=== PATIENT | female | born 1980 | race Caucasian/White ===

== ENCOUNTER 2017-04-01 17:49 | Emergency (ER) | payer MEDICAID ==
[~2017-04-01] VITALS: Ht 154.9 cm; Wt 89.4 kg
[~2017-04-01 17:49] MED LIST: PREN-385 PO
[2017-04-01 18:57] VITALS: BP 129/94
--- NOTE | 2017-04-01 22:29 | NUR ---
PT AMB W/O AST TO ER BED 7
--- NOTE | 2017-04-01 22:30 | NUR ---
37Y F BIB FAMILY C/O ABDOMINAL PAIN 08/31 X2 WEEKS. PT IS AAOX4, NO S/S OF SOB/DISTRESS, LUNG SOUNDS CLEAR BL, DENIES CHEST PAIN, HR EVEN AND REGULAR; DENIES N/V/D; SKIN IS PINK/WARM/DRY; AMBULATORY WITH STEADY GAIT. PATIENT POSITIONED FOR COMFORT; HOB ELEVATED; BEDRAILS UP X2; BED DOWN. ER MD MADE AWARE OF PT STATUS.
--- NOTE | 2017-04-01 22:36 | NUR ---
Dr. Goncalves evaluating patient at bedside.
[2017-04-01] MEDS ORDERED: NACL 0.9% 1,000 ML IV SCH (22:39)
[2017-04-01] MEDS ORDERED: KETOROLAC 30 MG/ML VIAL IVP ONE (22:40)
--- NOTE | 2017-04-01 22:43 | NUR ---
Ultrasound at bedside.
[2017-04-01 23:20] LABS: BASOPHILS # (AUTO) 0.1 K/uL (0.00-0.22); BASOPHILS % (AUTO) 1.6 % (0.0-2.0); EOSINOPHILS # (AUTO) 0.1 K/uL (0-0.4); EOSINOPHILS % (AUTO) 1.5 % (0.0-4.0); HEMOGLOBIN 13.8 g/dL (12.0-16.0); LYMPHOCYTES # (AUTO) 2.5 K/uL (2.5-16.5); MEAN CORPUSCULAR HEMOGLOBIN 28 pg (27-31); MEAN CORPUSCULAR HGB CONC 33 g/dL (33-37); MEAN CORPUSCULAR VOLUME 86 fL (80-94); MONOCYTES # (AUTO) 0.4 K/uL (0.8-1.0); MONOCYTES % (AUTO) 4.3 % (1.7-9.3); NEUTROPHILS # (AUTO) 5.6 K/uL (1.8-7.7); NEUTROPHILS % (AUTO) 63.6 % (42.2-75.2); PLATELET COUNT (AUTO) 298 K/uL (140-450); RED BLOOD CELL COUNT(AUTO) 4.89 MIL/uL (4.20-5.40); RED CELL DISTRIBUTION WIDTH 11.8 % (11.6-13.7); WHITE BLOOD COUNT (AUTO) 8.7 K/uL (4.8-10.8)
[2017-04-01 23:37] LABS: ALBUMIN 3.4 g/dL (3.4-5.0); ANION GAP 10.1 (8-16); CALCIUM 8.9 mg/dL (8.5-10.1); CARBON DIOXIDE 28.8 mmol/L (21-32); CREATININE 0.6 mg/dL (0.6-1.3); POTASSIUM 3.9 mmol/L (3.5-5.1); TOTAL BILIRUBIN 0.3 mg/dL (0.0-1.0); TOTAL PROTEIN, SERUM 8.8 g/dL (6.4-8.2)
--- NOTE | 2017-04-01 23:58 | NUR ---
PT SENT TO CT WITH TECH AAOX4
--- NOTE | 2017-04-02 01:57 | NUR ---
Patient appears to be resting comfortably in bed. Vital Signs within normal limits. Respirations even and unlabored.
[2017-04-02 02:25] VITALS: BP 117/68
--- NOTE | 2017-04-02 02:27 | NUR ---
Patient discharged with v/s stable. Written and verbal after care instructions given and explained. Patient alert, oriented and verbalized understanding of instructions. Ambulatory with steady gait. All questions addressed prior to discharge. ID band removed. Patient advised to follow up with PMD. Rx of ZOFRAN ODT 4MG, MOTRIN 600MG given. Patient educated on indication of medication including possible reaction and side effects. Opportunity to ask questions provided and answered.
== END 2017-04-02 02:27 | disposition home or self-care (01) ==
LOC: MED 17:49
DX: D27.1 Benign neoplasm of left ovary (principal); R73.9 Hyperglycemia, unspecified
CPT/HCPCS: 36415; 74177; 76830; 76856; 80053; 81002; 81025; 83690; 85025; 96361; 96374; 99285; J1885; J7030; Q0092; Q9967

== ENCOUNTER 2020-01-31 06:05 | Day surgery (SDC) | payer MEDICAID, OTHER ==
[2020-01-26 10:58] LABS: BASOPHILS # (AUTO) 0.1 K/uL (0.00-0.22); BASOPHILS % (AUTO) 1.5 % (0.0-2.0); EOSINOPHILS # (AUTO) 0.1 K/uL (0-0.4); EOSINOPHILS % (AUTO) 1.4 % (0.0-4.0); HEMOGLOBIN 12.9 g/dL (12.0-16.0); LYMPHOCYTES # (AUTO) 2.3 K/uL (2.5-16.5); LYMPHOCYTES % (AUTO) 37.1 % (20.5-51.1); MEAN CORPUSCULAR HEMOGLOBIN 28 pg (27-31); MEAN CORPUSCULAR HGB CONC 33 g/dL (33-37); MEAN CORPUSCULAR VOLUME 83.5 fL (80-94); MONOCYTES # (AUTO) 0.3 K/uL (0.8-1.0); MONOCYTES % (AUTO) 4.4 % (1.7-9.3); NEUTROPHILS # (AUTO) 3.5 K/uL (1.8-7.7); NEUTROPHILS % (AUTO) 55.6 % (42.2-75.2); PLATELET COUNT (AUTO) 325 K/uL (140-450); RED BLOOD CELL COUNT(AUTO) 4.67 MIL/uL (4.20-5.40); RED CELL DISTRIBUTION WIDTH 13.4 % (11.6-13.7); WHITE BLOOD COUNT (AUTO) 6.3 K/uL (4.8-10.8)
[2020-01-26 11:11] LABS: ALBUMIN 3.4 g/dL (3.4-5.0); ANION GAP 9.9 (8-16); CARBON DIOXIDE 28.1 mmol/L (21-32); CREATININE 0.7 mg/dL (0.6-1.3); TOTAL BILIRUBIN 0.3 mg/dL (0.0-1.0)
== END 2020-01-31 07:40 | disposition home or self-care (01) ==
LOC: MDS 06:05 → MMU 06:14 → MDS 07:40
PROVIDERS: ATTEND Obstetrics & Gynecology
DX: D27.1 Benign neoplasm of left ovary (principal); Z53.8 Procedure and treatment not carried out for other reasons
CPT/HCPCS: 36415; 80053; 84703; 85025; J7120

== ENCOUNTER 2022-04-04 05:37 | Emergency (ER) | payer MEDICAID ==
[~2022-04-04] VITALS: Ht 162.6 cm; Wt 88.5 kg
[2022-04-04 05:40] VITALS: BP 140/80
--- NOTE | 2022-04-04 05:54 | NUR ---
PT TAKEN TO 11
--- NOTE | 2022-04-04 06:08 | NUR ---
[facility]
--- NOTE | 2022-04-04 06:12 | NUR ---
BLOOD SAMPLES COLLECTED AND WALKED TO LAB
[2022-04-04] MEDS ORDERED: KETOROLAC 30 MG/ML VIAL IVP ONE (06:15)
--- NOTE | 2022-04-04 06:17 | NUR ---
42 Y/O FEMALE BIBS FROM HOME, C/O LLQ PAIN X3 DAYS. PT STATES HER PAIN RADIATES UP AND DOWN HER LEFT SIDE FROM HER LLQ. DESCRIBED "CRAMPING/DULL/PRESSURE" AGGRIVATED BY WALKING. +NAUSEA, NORMAL BM, NO MASS FELT. UNLABORED BREATHING, AMBULATORY W/O ASSISTANCE. PT SEATED IN BED WITH HOB RAISED, AND BED IN LOWEST SETTING WITH RAIL UP X2. HX:OVARIAN CYST, CERVICAL CANCER, DM, HTN NKA SX: X2
[2022-04-04] MEDS ORDERED: NACL 0.9% 1,000 ML IV ONE (06:25)
[2022-04-04 06:37] LABS: BASOPHILS % (AUTO) 0.6 % (0.0-2.0); EOSINOPHILS # (AUTO) 0.1 K/uL (0-0.4); EOSINOPHILS % (AUTO) 2.8 % (0.0-4.0); HEMATOCRIT 27.2 % (36-48); HEMOGLOBIN 9.2 g/dL (12.0-16.0); LYMPHOCYTES # (AUTO) 0.7 K/uL (2.5-16.5); MEAN CORPUSCULAR HEMOGLOBIN 30 pg (27-31); MEAN CORPUSCULAR HGB CONC 34 g/dL (33-37); MEAN CORPUSCULAR VOLUME 88.6 fL (80-94); MONOCYTES # (AUTO) 0.5 K/uL (0.8-1.0); MONOCYTES % (AUTO) 12.3 % (1.7-9.3); NEUTROPHILS # (AUTO) 2.8 K/uL (1.8-7.7); NEUTROPHILS % (AUTO) 68.3 % (42.2-75.2); PLATELET COUNT (AUTO) 280 K/uL (140-450); RED BLOOD CELL COUNT(AUTO) 3.07 MIL/uL (4.20-5.40); RED CELL DISTRIBUTION WIDTH 15.8 % (11.6-13.7); WHITE BLOOD COUNT (AUTO) 4.1 K/uL (4.8-10.8)
[2022-04-04 06:52] LABS: ALBUMIN 3.1 g/dL (3.4-5.0); ANION GAP 10.9 (8-16); CREATININE 0.9 mg/dL (0.6-1.3); POTASSIUM 3.9 mmol/L (3.5-5.1); TOTAL BILIRUBIN 0.2 mg/dL (0.0-1.0)
--- NOTE | 2022-04-04 07:02 | NUR ---
ULTRASOUND AT BEDSIDE
--- NOTE | 2022-04-04 07:08 | NUR ---
REPORT GIVEN TO LYNNE HSU
--- NOTE | 2022-04-04 07:10 | NUR ---
RECEIVED REPORT FROM LYNNE HANSEN. TRANSFER OF CARE AT THIS TIME.
--- NOTE | 2022-04-04 07:32 | NUR ---
HCG-NEG, UA DONE.
[2022-04-04 07:40] LABS: APPEARANCE,URINE CLEAR (CLEAR); BILIRUBIN,URINE 1+ (NEGATIVE); BLOOD, URINE NEGATIVE (NEGATIVE); COLOR,URINE YELLOW (YELLOW); LEUKOCYTE ESTERASE ,URINE TRACE (NEGATIVE); NITRITE, URINE NEGATIVE (NEGATIVE); UGLUCOSE 3+ (NEGATIVE)
--- NOTE | 2022-04-04 07:40 | NUR ---
PT TAKEN TO CT VIA W/C.
[2022-04-04 07:49] LABS: RBC,URINE 0-5 /HPF (0-5)
--- NOTE | 2022-04-04 07:49 | NUR ---
PT TAKEN TO ER BED 11 VIA W/C FROM CT.
[2022-04-04] MEDS ORDERED: CEPH-588 PO (08:55)
[2022-04-04] MEDS ORDERED: cephALEXin 500 MG CAP PO ONE (08:55)
[2022-04-04 09:18] VITALS: BP 134/72
--- NOTE | 2022-04-04 09:19 | NUR ---
Patient discharged with v/s stable. Written and verbal after care instructions given UTI, ANEMIA, UNCONTROLLED DM and explained. Patient alert, oriented and verbalized understanding of instructions. Ambulatory with steady gait. All questions addressed prior to discharge. ID band removed. Patient advised to follow up with PMD. Rx of KEFLEX given. Patient educated on indication of medication including possible reaction and side effects. Opportunity to ask questions provided and answered.
== END 2022-04-04 09:18 | disposition home or self-care (01) ==
LOC: MED 05:37
DX: N39.0 Urinary tract infection, site not specified (principal); I10 Essential (primary) hypertension; E11.65 Type 2 diabetes mellitus with hyperglycemia; D64.9 Anemia, unspecified; Z85.41 Personal history of malignant neoplasm of cervix uteri; Z79.899 Other long term (current) drug therapy; Z98.890 Other specified postprocedural states
CPT/HCPCS: 36415; 74176; 76830; 76856; 80053; 81001; 81025; 83690; 84703; 85025; 87086; 93976; 96361; 96374; 99285; J1885; Q0092

== ENCOUNTER 2022-11-02 13:08 | Emergency (ER) | payer MEDICAID ==
[~2022-11-02] VITALS: Ht 160 cm; Wt 90.7 kg
[~2022-11-02 13:08] MED LIST changes: +CEPH-588 PO
[2022-11-02 13:17] VITALS: BP 150/94
[2022-11-02] MEDS ORDERED: ONDANSETRON 4 MG/2 ML VIAL IVP ONE (14:10)
[2022-11-02] MEDS ORDERED: NACL 0.9% 1,000 ML IV SCH (14:10)
[2022-11-02] MEDS ORDERED: KETOROLAC 30 MG/ML VIAL IVP ONE (14:10)
--- NOTE | 2022-11-02 14:10 | NUR ---
PT LAYING IN BED WITH C/O LEFT FLANK PAIN. CONNECTED PT TO TELE MONITOR: SR 79, COLLECTED URINE SAMPLE. AWAITING TO BE SEEN BY
[2022-11-02 14:49] LABS: BASOPHILS % (AUTO) 0.4 % (0.0-2.0); EOSINOPHILS # (AUTO) 0.1 K/uL (0-0.4); EOSINOPHILS % (AUTO) 3.7 % (0.0-4.0); HEMATOCRIT 34.2 % (36-48); HEMOGLOBIN 11.3 g/dL (12.0-16.0); LYMPHOCYTES # (AUTO) 0.8 K/uL (2.5-16.5); LYMPHOCYTES % (AUTO) 21.2 % (20.5-51.1); MEAN CORPUSCULAR HEMOGLOBIN 29 pg (27-31); MEAN CORPUSCULAR HGB CONC 33 g/dL (33-37); MEAN CORPUSCULAR VOLUME 87.2 fL (80-94); MONOCYTES # (AUTO) 0.3 K/uL (0.8-1.0); NEUTROPHILS # (AUTO) 2.6 K/uL (1.8-7.7); NEUTROPHILS % (AUTO) 66.7 % (42.2-75.2); PLATELET COUNT (AUTO) 309 K/uL (140-450); RED BLOOD CELL COUNT(AUTO) 3.92 MIL/uL (4.20-5.40)
[2022-11-02 14:56] LABS: APPEARANCE,URINE CLEAR (CLEAR); BILIRUBIN,URINE NEGATIVE (NEGATIVE); BLOOD, URINE NEGATIVE (NEGATIVE); COLOR,URINE YELLOW (YELLOW); LEUKOCYTE ESTERASE ,URINE NEGATIVE (NEGATIVE); NITRITE, URINE NEGATIVE (NEGATIVE); UGLUCOSE 3+ (NEGATIVE)
[2022-11-02 15:11] LABS: ANION GAP 13.1 (8-16); CARBON DIOXIDE 26.7 mmol/L (21-32); CREATININE 0.9 mg/dL (0.6-1.3); POTASSIUM 3.8 mmol/L (3.5-5.1); TOTAL BILIRUBIN 0.2 mg/dL (0.0-1.0)
[2022-11-02] MEDS ORDERED: NACL 0.9% 1,000 ML IV ONE (15:15)
[2022-11-02] MEDS ORDERED: INSULIN REGULAR, HUMAN 100 UNIT/ML VIAL IVP ONE (15:15)
[2022-11-02] MEDS ORDERED: MORPHINE SULFATE 4 MG/ML SYR IVP ONE (16:45)
[2022-11-02] MEDS ORDERED: DOCU-299 PO (16:55)
[2022-11-02] MEDS ORDERED: MIRABULK PO (16:55)
[2022-11-02] MEDS ORDERED: NA P133E RC (16:55)
[2022-11-02] MEDS ORDERED: ACET-503 PO (16:57)
[2022-11-02] MEDS ORDERED: NAPR-1871 PO (16:57)
[2022-11-02 19:11] VITALS: BP 132/80
--- NOTE | 2022-11-02 19:12 | NUR ---
Patient discharged with v/s stable. Written and verbal after care instructions given and explained. Patient verbalized understanding. Ambulatory with steady gait. All questions addressed prior to discharge. Advised to follow up with PMD.
== END 2022-11-02 19:11 | disposition home or self-care (01) ==
LOC: MED 13:08
DX: K59.00 Constipation, unspecified (principal); E11.9 Type 2 diabetes mellitus without complications; I10 Essential (primary) hypertension; Z79.4 Long term (current) use of insulin; Z79.899 Other long term (current) drug therapy; Z85.41 Personal history of malignant neoplasm of cervix uteri
CPT/HCPCS: 36415; 74176; 76830; 80053; 81003; 81025; 82009; 83690; 83930; 84703; 85025; 96361; 96374; 96375; 99284; J1815; J1885; J2405; J7030; Q0092

== ENCOUNTER 2023-06-25 13:01 | Emergency (ER) | payer MEDICAID ==
[~2023-06-25] VITALS: Ht 157.5 cm; Wt 86.6 kg
[~2023-06-25 13:01] MED LIST changes: +ACET-503 PO; +DOCU-299 PO; +MIRABULK PO; +NA P133E RC; +NAPR-1871 PO
[2023-06-25 13:16] VITALS: BP 90/53; PULSE 101; RESP 18; TEMP 98.3; O2SAT 99
[2023-06-25] MEDS ORDERED: NACL 0.9% 1,000 ML IV ONE (13:35)
[2023-06-25 13:40] LABS: BASOPHILS % (AUTO) 0.2 % (0.0-2.0); EOSINOPHILS % (AUTO) 0.3 % (0.0-4.0); HEMOGLOBIN 10.5 g/dL (12.0-16.0); LYMPHOCYTES # (AUTO) 0.5 K/uL (2.5-16.5); LYMPHOCYTES % (AUTO) 4.1 % (20.5-51.1); MEAN CORPUSCULAR HEMOGLOBIN 28 pg (27-31); MEAN CORPUSCULAR HGB CONC 34 g/dL (33-37); MEAN CORPUSCULAR VOLUME 81.8 fL (80-94); MONOCYTES # (AUTO) 0.5 K/uL (0.8-1.0); MONOCYTES % (AUTO) 4.6 % (1.7-9.3); NEUTROPHILS # (AUTO) 9.9 K/uL (1.8-7.7); NEUTROPHILS % (AUTO) 90.8 % (42.2-75.2); PLATELET COUNT (AUTO) 214 K/uL (140-450); RED BLOOD CELL COUNT(AUTO) 3.79 MIL/uL (4.20-5.40); RED CELL DISTRIBUTION WIDTH 15.1 % (11.6-13.7)
[2023-06-25 13:56] LABS: ALBUMIN 2.7 g/dL (3.4-5.0); ANION GAP 14.6 (8-16); CARBON DIOXIDE 23.8 mmol/L (21-32); CREATININE 0.8 mg/dL (0.6-1.3); POTASSIUM 3.4 mmol/L (3.5-5.1); TOTAL BILIRUBIN 0.6 mg/dL (0.0-1.0)
[2023-06-25 14:31] LABS: APPEARANCE,URINE CLOUDY (CLEAR); BILIRUBIN,URINE 1+ (NEGATIVE); BLOOD, URINE 3+ (NEGATIVE); COLOR,URINE YELLOW (YELLOW); LEUKOCYTE ESTERASE ,URINE 3+ (NEGATIVE); NITRITE, URINE POSITIVE (NEGATIVE); UGLUCOSE 1+ (NEGATIVE)
[2023-06-25 14:45] LABS: RBC,URINE 11-20 (MOD) /HPF (0-5); TRICHOMONAS,URINE None Seen /HPF (None Seen); YEAST,URINE None Seen /HPF (None Seen)
[2023-06-25] MEDS ORDERED: cefTRIAXone 1,000 MG VIAL ONE (17:09)
[2023-06-25] MEDS ORDERED: CEPH-588 PO (17:24)
[2023-06-25] MEDS ORDERED: PYR100 PO (17:24)
[2023-06-25] MEDS ORDERED: ONDA-188 SL (17:24)
[2023-06-25 17:27] VITALS: BP 118/65; PULSE 87; RESP 18; TEMP 98.5; O2SAT 98
--- NOTE | 2023-06-25 17:40 | NUR ---
Per [facility] 02 ED Rei Tsang started at 1714 amd stoppped at 1740. ED director aware.
--- NOTE | 2023-06-25 17:40 | NUR ---
Patient discharged with v/s stable. Written and verbal after care instructions given and explained. Patient alert, oriented and verbalized understanding of instructions. Ambulatory with steady gait. All questions addressed prior to discharge. ID band removed. Patient advised to follow up with PMD. Rx of CEPHALEXIN, ONDANSETRON,AND PHENAZOPYRIDINE given. Patient educated on indication of medication including possible reaction and side effects. Opportunity to ask questions provided and answered.
== END 2023-06-25 17:40 | disposition home or self-care (01) ==
LOC: MED 13:01
DX: N39.0 Urinary tract infection, site not specified (principal); N12 Tubulo-interstitial nephritis, not specified as acute or chronic; K83.9 Disease of biliary tract, unspecified; E11.65 Type 2 diabetes mellitus with hyperglycemia; D64.9 Anemia, unspecified; I10 Essential (primary) hypertension; Z85.41 Personal history of malignant neoplasm of cervix uteri; Z98.890 Other specified postprocedural states; Z79.899 Other long term (current) drug therapy
CPT/HCPCS: 36415; 71275; 74176; 76856; 80053; 81001; 81025; 83690; 85025; 85379; 87040; 87086; 93976; 96361; 96365; 99285; J0696; Q0092; Q9967

== ENCOUNTER 2023-06-27 20:23 | Inpatient (IN) | payer MEDICAID ==
[~2023-06-27] VITALS: Ht 152.4 cm; Wt 86.6 kg
[~2023-06-27 20:23] MED LIST changes: +ONDA-188 SL; +PYR100 PO
[2023-06-27 20:28] VITALS: BP_SYST 126; BP_SYST 83; BP_DIAS 49; BP_DIAS 85; PULSE 84; RESP 18; TEMP 97.6; O2SAT 99
[2023-06-27] MEDS ORDERED: cefTRIAXone 1,000 MG VIAL ONE (20:55)
[2023-06-27 21:38] LABS: HEMATOCRIT 28.2 % (36-48); HEMOGLOBIN 9.4 g/dL (12.0-16.0); MEAN CORPUSCULAR HEMOGLOBIN 28 pg (27-31); MEAN CORPUSCULAR HGB CONC 33 g/dL (33-37); MEAN CORPUSCULAR VOLUME 82.7 fL (80-94); PLATELET COUNT (AUTO) 231 K/uL (140-450); RED BLOOD CELL COUNT(AUTO) 3.41 MIL/uL (4.20-5.40); RED CELL DISTRIBUTION WIDTH 15.1 % (11.6-13.7); WHITE BLOOD COUNT (AUTO) 5.7 K/uL (4.8-10.8)
[2023-06-27 21:39] LABS: ANION GAP 15.3 (8-16); CALCIUM 8.3 mg/dL (8.5-10.1); CARBON DIOXIDE 24.2 mmol/L (21-32); CREATININE 0.9 mg/dL (0.6-1.3); POTASSIUM 4.5 mmol/L (3.5-5.1)
[2023-06-27 21:50] LABS: BASOPHILS % (MANUAL) 2 % (0-2); EOSINOPHILS % (MANUAL) 2 % (0-4); LYMPHOCYTES % (MANUAL) 19 % (20-46); MONOCYTES % (MANUAL) 12 % (5-12); SMUDGE CELLS MOD
[2023-06-27 21:51] LABS: METAMYELOCYTES % 1 % (0-0)
[2023-06-27] MEDS ORDERED: METF-346 PO (21:56)
[2023-06-27] MEDS ORDERED: GLIP5TAB13 PO (21:56)
[2023-06-27] MEDS ORDERED: LIP80 PO (21:56)
[2023-06-27] MEDS: NACL 0.9% 1,000 ML IV SCH (23:10)
[2023-06-27] MEDS ORDERED: MORPHINE SULFATE 2 MG/ML SYR IVP PRN (23:10)
[2023-06-27] MEDS ORDERED: ONDANSETRON 4 MG/2 ML VIAL IVP PRN (23:10)
[2023-06-27] MEDS ORDERED: LORazepam 2 MG/ML VIAL IVP PRN (23:10)
[2023-06-27] MEDS ORDERED: ACETAMINOPHEN 325 MG TAB PO PRN (23:10)
[2023-06-28 00:16] VITALS: BP 137/69; PULSE 77; RESP 18; TEMP 97; O2SAT 100
[2023-06-28 04:00] VITALS: BP 126/72; PULSE 76; RESP 18; TEMP 97.2; O2SAT 100
[2023-06-28 05:32] LABS: BASOPHILS % (AUTO) 0.3 % (0.0-2.0); EOSINOPHILS # (AUTO) 0.1 K/uL (0-0.4); EOSINOPHILS % (AUTO) 1.8 % (0.0-4.0); HEMATOCRIT 28.4 % (36-48); HEMOGLOBIN 9.5 g/dL (12.0-16.0); LYMPHOCYTES # (AUTO) 0.9 K/uL (2.5-16.5); LYMPHOCYTES % (AUTO) 16.4 % (20.5-51.1); MEAN CORPUSCULAR HEMOGLOBIN 28 pg (27-31); MEAN CORPUSCULAR HGB CONC 33 g/dL (33-37); MEAN CORPUSCULAR VOLUME 82.7 fL (80-94); MONOCYTES # (AUTO) 0.5 K/uL (0.8-1.0); MONOCYTES % (AUTO) 9.2 % (1.7-9.3); NEUTROPHILS % (AUTO) 72.3 % (42.2-75.2); PLATELET COUNT (AUTO) 226 K/uL (140-450); RED BLOOD CELL COUNT(AUTO) 3.44 MIL/uL (4.20-5.40); RED CELL DISTRIBUTION WIDTH 14.9 % (11.6-13.7); WHITE BLOOD COUNT (AUTO) 5.5 K/uL (4.8-10.8)
[2023-06-28 05:59] LABS: ALBUMIN 2.5 g/dL (3.4-5.0); ANION GAP 11.6 (8-16); CALCIUM 8.2 mg/dL (8.5-10.1); CARBON DIOXIDE 27.4 mmol/L (21-32); CREATININE 0.8 mg/dL (0.6-1.3); MAGNESIUM 1.5 mg/dL (1.8-2.4); TOTAL BILIRUBIN 0.2 mg/dL (0.0-1.0); TOTAL PROTEIN, SERUM 7.3 g/dL (6.4-8.2)
[2023-06-28 08:00] VITALS: BP 151/63; PULSE 74; RESP 18; TEMP 97.1; O2SAT 99
[2023-06-28] MEDS ORDERED: MAG SULF 2000 MG/WATER PREMIX 100 ML IV PRN (08:20)
[2023-06-28] MEDS ORDERED: DEXTROSE 50% 50 ML SYR IVP PRN (08:25)
[2023-06-28] MEDS: NACL 0.9% 1,000 ML IV SCH ×3 (09:04→23:20)
[2023-06-28] MEDS: BLOOD GLUCOSE MONITORING 1 DEV DEV FS SCH ×3 (11:23→20:35)
[2023-06-28] MEDS: INSULIN LISPRO SLIDING SCALE 100 UNITS/ML VIAL SUBQ PRN ×2 (11:26→20:44)
[2023-06-28 16:00] VITALS: BP 148/75; PULSE 70; RESP 18; TEMP 97.3; O2SAT 100
[2023-06-28 20:00] VITALS: PULSE 74; RESP 18; O2SAT 97
[2023-06-29 04:00] VITALS: BP 143/58; PULSE 68; RESP 18; TEMP 97.8; O2SAT 100
[2023-06-29] MEDS: BLOOD GLUCOSE MONITORING 1 DEV DEV FS SCH ×2 (06:36→11:31)
[2023-06-29] MEDS: INSULIN LISPRO SLIDING SCALE 100 UNITS/ML VIAL SUBQ PRN ×2 (06:38→11:34)
[2023-06-29 08:00] VITALS: BP 145/61; PULSE 63; RESP 19; TEMP 98; O2SAT 98
[2023-06-29 11:56] LABS: ANION GAP 11.6 (8-16); BASOPHILS % (AUTO) 0.3 % (0.0-2.0); CALCIUM 8.6 mg/dL (8.5-10.1); CARBON DIOXIDE 26.5 mmol/L (21-32); CREATININE 0.7 mg/dL (0.6-1.3); EOSINOPHILS # (AUTO) 0.1 K/uL (0-0.4); EOSINOPHILS % (AUTO) 1.9 % (0.0-4.0); HEMATOCRIT 29.7 % (36-48); HEMOGLOBIN 9.9 g/dL (12.0-16.0); LYMPHOCYTES # (AUTO) 0.9 K/uL (2.5-16.5); LYMPHOCYTES % (AUTO) 24.6 % (20.5-51.1); MEAN CORPUSCULAR HEMOGLOBIN 27 pg (27-31); MEAN CORPUSCULAR HGB CONC 33 g/dL (33-37); MONOCYTES # (AUTO) 0.3 K/uL (0.8-1.0); MONOCYTES % (AUTO) 8.6 % (1.7-9.3); NEUTROPHILS # (AUTO) 2.3 K/uL (1.8-7.7); NEUTROPHILS % (AUTO) 64.6 % (42.2-75.2); PLATELET COUNT (AUTO) 264 K/uL (140-450); POTASSIUM 4.1 mmol/L (3.5-5.1); RED BLOOD CELL COUNT(AUTO) 3.61 MIL/uL (4.20-5.40); RED CELL DISTRIBUTION WIDTH 14.5 % (11.6-13.7); WHITE BLOOD COUNT (AUTO) 3.5 K/uL (4.8-10.8)
[2023-06-29] MEDS ORDERED: CEPH-588 PO (14:35)
[2023-06-29] MEDS: NACL 0.9% 1,000 ML IV SCH (15:10)
[2023-06-29 15:20] VITALS: BP 145/61; PULSE 63; RESP 19; TEMP 98
== END 2023-06-29 16:25 | disposition home or self-care (01) | DRG 724 ==
LOC: MED 20:23 → MMU 23:17 → MTU 23:24
PROVIDERS: ADMIT Hospitalist; ATTEND Hospitalist
DX: R78.81 Bacteremia (principal); E43 Unspecified severe protein-calorie malnutrition; E87.20 Acidosis, unspecified; E11.9 Type 2 diabetes mellitus without complications; N39.0 Urinary tract infection, site not specified; I10 Essential (primary) hypertension; N83.209 Unspecified ovarian cyst, unspecified side; Z85.41 Personal history of malignant neoplasm of cervix uteri; Z68.37 Body mass index [BMI] 37.0-37.9, adult
CPT/HCPCS: 36415; 80048; 80053; 82948; 83605; 83735; 84703; 85025; 87040; 87081; 96365; 99285; J0696; J2270; J3475; J7060

== ENCOUNTER 2023-10-25 16:46 | Emergency (ER) | payer MEDICAID ==
[~2023-10-25] VITALS: Ht 157.5 cm; Wt 72.6 kg
[~2023-10-25 16:46] MED LIST changes: +GLIP5TAB13 PO; +LIP80 PO; +METF-346 PO
[2023-10-25 18:38] VITALS: BP 103/61; PULSE 103; RESP 20; TEMP 98; O2SAT 98
[2023-10-25] MEDS ORDERED: NACL 0.9% 1,000 ML IV SCH (20:25)
[2023-10-25 20:52] LABS: BILIRUBIN,URINE NEGATIVE (NEGATIVE); BLOOD, URINE NEGATIVE (NEGATIVE); LEUKOCYTE ESTERASE ,URINE 1+ (NEGATIVE); NITRITE, URINE NEGATIVE (NEGATIVE); PH,URINE 6.5 (5.0-9.0); PROTEIN,URINE NEGATIVE (NEGATIVE); UGLUCOSE 3+ (NEGATIVE); UROBILINOGEN,URINE 0.2 EU/dL (0.2 - 1)
[2023-10-25 20:53] LABS: APPEARANCE,URINE SLIGHTLY CLOUDY (CLEAR); COLOR,URINE AMBER (YELLOW)
[2023-10-25 21:04] LABS: RBC,URINE 0-5 /HPF (0-5)
[2023-10-25 21:05] LABS: BACTERIA,URINE 10-30 (MOD) /HPF (None Seen); SQUAMOUS EPITHELIAL CELL,UR 0-3 (FEW) /LPF (0-3 (FEW))
[2023-10-25 21:29] LABS: BASOPHILS # (AUTO) 0.1 K/uL (0.00-0.22); BASOPHILS % (AUTO) 0.9 % (0.0-2.0); EOSINOPHILS # (AUTO) 0.1 K/uL (0-0.4); EOSINOPHILS % (AUTO) 1.4 % (0.0-4.0); HEMATOCRIT 30.3 % (36-48); LYMPHOCYTES # (AUTO) 1.6 K/uL (2.5-16.5); LYMPHOCYTES % (AUTO) 22.6 % (20.5-51.1); MEAN CORPUSCULAR HEMOGLOBIN 27 pg (27-31); MEAN CORPUSCULAR HGB CONC 33 g/dL (33-37); MEAN CORPUSCULAR VOLUME 82.3 fL (80-94); MONOCYTES # (AUTO) 0.6 K/uL (0.8-1.0); MONOCYTES % (AUTO) 8.7 % (1.7-9.3); NEUTROPHILS # (AUTO) 4.7 K/uL (1.8-7.7); NEUTROPHILS % (AUTO) 66.4 % (42.2-75.2); PLATELET COUNT (AUTO) 296 K/uL (140-450); RED BLOOD CELL COUNT(AUTO) 3.68 MIL/uL (4.20-5.40); RED CELL DISTRIBUTION WIDTH 15.1 % (11.6-13.7); WHITE BLOOD COUNT (AUTO) 7.1 K/uL (4.8-10.8)
[2023-10-25 21:41] LABS: INR 0.93 (0.8-1.2); PARTIAL THROMBOPLASTIN TIME 28.2 secs (22-35.6); PROTHROMBIN TIME 9.8 secs (10.8-13.4)
[2023-10-25 21:44] LABS: ANION GAP 13.7 (8-16); CALCIUM 8.4 mg/dL (8.5-10.1); POTASSIUM 3.7 mmol/L (3.5-5.1); TOTAL BILIRUBIN 0.3 mg/dL (0.0-1.0); TOTAL PROTEIN, SERUM 7.8 g/dL (6.4-8.2)
[2023-10-25] MEDS ORDERED: KETOROLAC 30 MG/ML VIAL IVP ONE (22:10)
[2023-10-25] MEDS ORDERED: cefTRIAXone 1,000 MG VIAL ONE (22:20)
[2023-10-25] MEDS ORDERED: DOXYCYCLINE 100 MG CAP PO SCH (22:55)
[2023-10-25] MEDS ORDERED: ONDANSETRON 4 MG/2 ML VIAL IVP ONE (23:00)
[2023-10-25] MEDS ORDERED: MORPHINE SULFATE 4 MG/ML SYR IVP ONE (23:00)
[2023-10-25 23:04] LABS: FLU A ANTIGEN POSITIVE (NEGATIVE); FLU B ANTIGEN NEGATIVE (NEGATIVE)
[2023-10-26] MEDS ORDERED: DOXY-690 PO (00:31)
[2023-10-26] MEDS ORDERED: TAM75 PO (00:31)
[2023-10-26] MEDS ORDERED: IBUP-2213 PO (00:31)
[2023-10-26] MEDS ORDERED: CIPR500T4 PO (00:31)
[2023-10-26 01:15] VITALS: BP 110/64; PULSE 88; RESP 20; TEMP 98.1; O2SAT 98
== END 2023-10-26 01:15 | disposition home or self-care (01) ==
LOC: MED 16:46
DX: N39.0 Urinary tract infection, site not specified (principal); D64.9 Anemia, unspecified; J11.1 Influenza due to unidentified influenza virus with other respiratory manifestations; Z20.822 Contact with and (suspected) exposure to COVID-19; Z85.41 Personal history of malignant neoplasm of cervix uteri; E11.9 Type 2 diabetes mellitus without complications; Z98.890 Other specified postprocedural states; Z79.899 Other long term (current) drug therapy; Z79.2 Long term (current) use of antibiotics
CPT/HCPCS: 36415; 71045; 74176; 76856; 80053; 81001; 81025; 82550; 83605; 83690; 85025; 85610; 85730; 87040; 87070; 87086; 87205; 87210; 87426; 87491; 87804; 93976; 96361; 96365; 96375; 99285; J0696; J1885; J2270; J2405; J7030

== ENCOUNTER 2023-11-12 11:10 | Emergency (ER) | payer MEDICAID ==
[~2023-11-12] VITALS: Ht 152.4 cm; Wt 86.6 kg
[~2023-11-12 11:10] MED LIST changes: +CIPR500T4 PO; +DOXY-690 PO; -GLIP5TAB13 PO; +GLIP5TAB23 PO; +IBUP-2213 PO; +TAM75 PO
[2023-11-12 11:25] VITALS: BP 131/69; PULSE 80; RESP 15; TEMP 98.3; O2SAT 99
[2023-11-12 12:38] LABS: BASOPHILS % (AUTO) 0.8 % (0.0-2.0); EOSINOPHILS # (AUTO) 0.1 K/uL (0-0.4); EOSINOPHILS % (AUTO) 2.4 % (0.0-4.0); HEMATOCRIT 32.9 % (36-48); HEMOGLOBIN 11.3 g/dL (12.0-16.0); LYMPHOCYTES # (AUTO) 1.4 K/uL (2.5-16.5); LYMPHOCYTES % (AUTO) 38.2 % (20.5-51.1); MEAN CORPUSCULAR HEMOGLOBIN 28 pg (27-31); MEAN CORPUSCULAR HGB CONC 34 g/dL (33-37); MEAN CORPUSCULAR VOLUME 80.9 fL (80-94); MONOCYTES # (AUTO) 0.3 K/uL (0.8-1.0); NEUTROPHILS # (AUTO) 1.9 K/uL (1.8-7.7); NEUTROPHILS % (AUTO) 50.6 % (42.2-75.2); PLATELET COUNT (AUTO) 312 K/uL (140-450); RED BLOOD CELL COUNT(AUTO) 4.06 MIL/uL (4.20-5.40); RED CELL DISTRIBUTION WIDTH 14.8 % (11.6-13.7); WHITE BLOOD COUNT (AUTO) 3.7 K/uL (4.8-10.8)
[2023-11-12 12:54] LABS: ANION GAP 9.1 (8-16); CALCIUM 9.4 mg/dL (8.5-10.1); CARBON DIOXIDE 28.2 mmol/L (21-32); CREATININE 0.8 mg/dL (0.6-1.3); INR 0.92 (0.8-1.2); PARTIAL THROMBOPLASTIN TIME 27.5 secs (22-35.6); POTASSIUM 4.3 mmol/L (3.5-5.1); PROTHROMBIN TIME 9.7 secs (10.8-13.4)
[2023-11-12] MEDS ORDERED: CYCL-711 PO (17:23)
[2023-11-12] MEDS ORDERED: NAPR-1704 PO (17:23)
[2023-11-12 17:36] VITALS: BP 125/80; PULSE 89; RESP 15; TEMP 98.3; O2SAT 99
== END 2023-11-12 17:36 | disposition home or self-care (01) ==
LOC: MED 11:10
DX: R07.9 Chest pain, unspecified (principal); M25.511 Pain in right shoulder; E11.9 Type 2 diabetes mellitus without complications; Z79.899 Other long term (current) drug therapy; Z79.1 Long term (current) use of non-steroidal anti-inflammatories (NSAID); Z79.2 Long term (current) use of antibiotics
CPT/HCPCS: 36415; 71045; 73030; 80048; 83880; 84484; 85025; 85610; 85730; 99284; 99285

== ENCOUNTER 2024-02-09 09:16 | Emergency (ER) | payer MEDICAID ==
[~2024-02-09] VITALS: Ht 152.4 cm; Wt 88.0 kg
[~2024-02-09 09:16] MED LIST changes: +CYCL-711 PO; +NAPR-1704 PO
[2024-02-09 09:31] VITALS: BP 117/69; PULSE 90; RESP 18; TEMP 98.1; O2SAT 99
[2024-02-09] MEDS: KETOROLAC 30 MG/ML VIAL IM ONE (11:13)
[2024-02-09 11:20] LABS: BILIRUBIN,URINE 1+ (NEGATIVE); BLOOD, URINE TRACE-I (NEGATIVE); LEUKOCYTE ESTERASE ,URINE 2+ (NEGATIVE); NITRITE, URINE NEGATIVE (NEGATIVE); PH,URINE 6.5 (5.0-9.0); PROTEIN,URINE 1+ (NEGATIVE); UGLUCOSE TRACE (NEGATIVE)
[2024-02-09 11:39] LABS: APPEARANCE,URINE HAZY (CLEAR); COLOR,URINE AMBER (YELLOW)
[2024-02-09 11:42] LABS: BACTERIA,URINE >30 (MANY) /HPF (None Seen); ICTOTEST NEGATIVE (NEGATIVE); SQUAMOUS EPITHELIAL CELL,UR 4-10 (MOD) /LPF (0-3 (FEW)); WBC,URINE >25 (MANY) /HPF (0-5)
[2024-02-09] MEDS ORDERED: PYR100 PO (12:07)
[2024-02-09] MEDS ORDERED: ACET-10509 PO (12:07)
[2024-02-09] MEDS ORDERED: AMOX1TAB8 PO (12:07)
[2024-02-09 12:57] VITALS: BP 134/60; PULSE 88; RESP 18; TEMP 98.3; O2SAT 94
[2024-02-11] MEDS ORDERED: NITR100C7 PO (11:34)
== END 2024-02-09 12:57 | disposition home or self-care (01) ==
LOC: MED 09:16
DX: N12 Tubulo-interstitial nephritis, not specified as acute or chronic (principal); E11.9 Type 2 diabetes mellitus without complications; Z79.4 Long term (current) use of insulin; Z79.899 Other long term (current) drug therapy
CPT/HCPCS: 81001; 81025; 87086; 96372; 99284; J1885; 87186